=== PATIENT | female | born 1975 | race African-American/Black ===

== ENCOUNTER 2016-04-20 12:46 | Emergency (ER) | payer SELFPAY ==
--- NOTE | 2016-04-20 14:39 | ER Document Report ---
ED General - General Mode of Arrival: Ambulatory Information source: Patient TRAVEL OUTSIDE OF THE [place] IN LAST 30 DAYS: No - HPI Onset: Other Quality of pain: Achy <PIPE PETTY - Last Filed: 04/20/16 14:56> <ROYA GALE - Last Filed: 04/20/16 17:16> - General Chief Complaint: Abdominal Distention Stated Complaint: SORENESS/DIZZY Notes: Patient is a 40-year-old female that presents to the emergency department today with several generalized complaints including feeling jittery, feeling cold all the time, head pressure, foggy vision, lower extremity swelling, and "feeling like her body is falling apart". Patient states she believes her symptoms are related to her hypothyroidism. Patient states she has been off of her Synthroid medication for over a year. Patient states she was on 200 g of Synthroid before losing her health insurance in September of 2014. (PIPE PETTY) - Related Data Allergies/Adverse Reactions: deconsal Allergy (Uncoded 04/20/16 14:13) Past Medical History - General Information source: Patient - Social History Smoking Status: Current Every Day Smoker Cigarette use (# per day): Yes Frequency of alcohol use: Social Drug Abuse: None Occupation: laundry mat Family History: Reviewed & Not Pertinent Pulmonary Medical History: Reports: Hx Asthma Endocrine Medical History: Reports: Hx Hypothyroidism Past Surgical History: Reports: Hx Section, Hx Gynecologic Surgery - tubal, Hx Tubal Ligation - Immunizations Immunizations up to date: Yes Hx Diphtheria, Pertussis, Tetanus Vaccination: Yes <PIPE PETTY - Last Filed: 04/20/16 14:56> Review of Systems - Review of Systems Constitutional: See HPI, Other - "feeling cold" EENT: See HPI, Other - foggy vision, head pressure Cardiovascular: See HPI, Dizziness Respiratory: No symptoms reported Gastrointestinal: No symptoms reported Genitourinary: No symptoms reported Female Genitourinary: No symptoms reported Musculoskeletal: See HPI, Other - generalized body aches Skin: No symptoms reported Hematologic/Lymphatic: No symptoms reported Neurological/Psychological: See HPI, Other - "feeling jittery" -: Yes All other systems reviewed and negative <PIPE PETTY - Last Filed: 04/20/16 14:56> Physical Exam - General General appearance: Appears well, Alert In distress: None - HEENT Head: Normocephalic, Atraumatic Eyes: Normal Extraocular movements intact: Yes Mouth/Lips: Other - poor dentition throughout Mucous membranes: Moist - Respiratory Respiratory status: No respiratory distress - Cardiovascular Rhythm: Regular Heart sounds: Normal auscultation Murmur: No - Abdominal Inspection: Normal Distension: No distension - Extremities General upper extremity: Normal inspection, Nontender, Normal ROM. No: Edema General lower extremity: Edema - trace edema bilaterally - Neurological Neuro grossly intact: Yes Cognition: Normal Orientation: AAOx4 Juan José Coma Scale Eye Opening: Spontaneous Juan José Coma Scale Verbal: Oriented Terril Coma Scale Motor: Obeys Commands Juan José Coma Scale Total: 15 Speech: Normal - Psychological Associated symptoms: Normal affect, Normal mood - Skin Skin Temperature: Warm Skin Moisture: Dry Skin Color: Normal <PIPE PETTY - Last Filed: 04/20/16 14:56> Course - Laboratory Result Diagrams: 04/20/16 15:45 04/20/16 15:45 <ROYA GALE - Last Filed: 04/20/16 17:16> - Vital Signs Vital signs: Temp Pulse Resp BP Pulse Ox 98.5 F 72 18 112/61 100 04/20/16 13:30 04/20/16 13:30 04/20/16 13:30 04/20/16 13:30 04/20/16 13:30 (PIPE PETTY) (ROYA GALE) - Laboratory Laboratory results interpreted by me: 04/20/16 04/20/16 04/20/16 15:45 15:45 15:45 Hgb 11.8 L Hct 35.8 L RDW 15.7 H Potassium 3.4 L TSH 38.60 H Free T4 0.42 L Free T3 pg/mL 2.76 L (ROYA GALE) Discharge <PIPE PETTY - Last Filed: 04/20/16 14:56> <ROYA GALE - Last Filed: 04/20/16 17:16> - Discharge Clinical Impression: Hypothyroidism Qualifiers: Hypothyroidism type: unspecified Qualified Code(s): E03.9 - Hypothyroidism, unspecified Condition: Stable Disposition: HOME, SELF-CARE Additional Instructions: Hypothyroidism: The thyroid gland is found in the front of the neck. It produces thyroid hormone. Thyroid hormone regulates the metabolism. Hypothyroidism means the gland is not turning out enough thyroid hormone. Too much thyroid hormone "turns up the thermostat" too high, causing weight loss, nervousness, rapid heartbeat, and weakness. Too little thyroid hormone causes fatigue, depression, weight gain, and hair thinning. Hypothyroidism is treated with thyroid replacement pills. Testing can show if there are other hormone problems, and can determine whether the pituitary gland or thyroid gland is at fault. Contact the doctor or return if you change for the worse -- for example, palpitations, severe nervousness, chest pain, shortness of breath, worsening weakness or lightheadedness. ALL OF YOUR SYMPTOMS MAY BE DUE TO HYPOTHYROIDISM. SOME OF THE SYMPTOMS MAY ALSO BE DUE TO A VIRAL ILLNESS. TAKE THE MEDICATION PRESCRIBED. GET PLENTY OF REST. FOLLOW UP WITH A LOCAL MEDICAL DOCTOR IN ONE WEEK FOR RECHECK AND TO MANAGE YOUR HYPOTHYROIDISM. RETURN TO THE EMERGENCY ROOM IF ANY NEW OR WORSENING SYMPTOMS. Prescriptions: Levothyroxine Sodium [Synthroid 50 Mcg Tablet] 50 mcg PO DAILY #30 tablet Scribe Attestation: 04/20/16 17:16 I personally performed the services described in the documentation, reviewed and edited the documentation which was dictated to the scribe in my presence, and it accurately records my words and actions. (ROYA GALE) Scribe Documentation - Scribe Written by Shekhar:: Shekhar Min, [id number] 04/20/2016 acting as scribe for :: Alexys <PIPE PETTY - Last Filed: 04/20/16 14:56>
[2016-04-20 15:58] LABS: ABSOLUTE BASOPHILS # (AUTO) 0.1 10^3/uL (0.0-0.2); ABSOLUTE EOSINOPHILS # (AUTO) 0.2 10^3/uL (0.0-0.6); ABSOLUTE MONOCYTES (AUTO) 0.4 10^3/uL (0.1-1.4); BASOPHILS % (AUTO) 0.8 % (0-2); EOSINOPHILS % (AUTO) 2.8 % (0-6); HEMATOCRIT 35.8 % (36.0-47.0); HEMOGLOBIN 11.8 g/dL (12.0-15.5); HGB HCT DIFFERENCE -0.4; LYMPHOCYTES % (AUTO) 29.7 % (13-45); MEAN CORPUSCULAR HEMOGLOBIN 28.7 pg (27.0-33.4); MEAN CORPUSCULAR HGB CONC 33.1 g/dL (32.0-36.0); MEAN CORPUSCULAR VOLUME 87 fl (80-97); MONOCYTES % (AUTO) 6.6 % (3-13); RED BLOOD COUNT 4.13 10^6/uL (3.72-5.28); RED CELL DISTRIBUTION WIDTH 15.7 % (11.5-14.0); SEGMENTED NEUTROPHILS % (AUTO) 60.1 % (42-78); WHITE BLOOD COUNT 6.6 10^3/uL (4.0-10.5)
[2016-04-20 16:09] LABS: ALANINE AMINOTRANSFERASE 25 U/L (9-52); ALBUMIN 4.2 g/dL (3.5-5.0); ALKALINE PHOSPHATASE 42 U/L (38-126); ANION GAP 12 (5-19); ASPARTATE AMINO TRANSFERASE 20 U/L (14-36); BILIRUBIN,TOTAL 0.5 mg/dL (0.2-1.3); BLOOD UREA NITROGEN 10 mg/dL (7-20); CARBON DIOXIDE 26 mmol/L (22-30); CHLORIDE 101 mmol/L (98-107); CREATININE RESULT 0.67 mg/dL (0.52-1.25); GLUCOSE 85 mg/dL (75-110); POTASSIUM 3.4 mmol/L (3.6-5.0); SODIUM 139.2 mmol/L (137-145)
[2016-04-20 16:26] LABS: FREE T3 2.76 pg/mL (2.77-5.27)
[2016-04-20 16:40] LABS: THYROID STIMULATING HORMONE 38.6 uIU/mL (0.47-4.68)
[2016-04-20 17:23] VITALS: BP 102/59
== END 2016-04-20 17:30 | disposition home or self-care (01) ==
LOC: ER 12:46
DX: E03.9 Hypothyroidism, unspecified (principal); H53.8 Other visual disturbances; R42 Dizziness and giddiness; R52 Pain, unspecified; R29.818 Other symptoms and signs involving the nervous system; R60.0 Localized edema; F17.210 Nicotine dependence, cigarettes, uncomplicated; J45.909 Unspecified asthma, uncomplicated
CPT/HCPCS: 36415; 80053; 84439; 84443; 84481; 85025; 99284

== ENCOUNTER 2016-05-10 07:10 | Emergency (ER) | payer SELFPAY ==
[2016-05-10 07:37] VITALS: BP 103/73
[2016-05-10] MEDS ORDERED: ASPIRIN 81 MG TABLET, CHEWABLE PO ONE (08:15)
--- NOTE | 2016-05-10 08:33 | EKG REPORT ---
SEVERITY:- NORMAL ECG - SINUS RHYTHM : Confirmed by: Kyaw Rodrigues 10-May-2016 08:32:06
== END 2016-05-10 08:35 | disposition left against medical advice (07) ==
LOC: ER 07:10
DX: Z53.21 Procedure and treatment not carried out due to patient leaving prior to being seen by health care provider (principal)
CPT/HCPCS: 93005; 93010

== ENCOUNTER 2016-05-10 10:58 | Emergency (ER) | payer SELFPAY ==
[2016-05-10] MEDS ORDERED: ASPIRIN 81 MG TABLET, CHEWABLE PO ONE (11:03)
--- NOTE | 2016-05-10 11:20 | ER Document Report ---
ED Medical Screen (RME) - General Stated Complaint: CHEST PAIN Mode of Arrival: Ambulatory Information source: Patient Notes: 40 y/o F presents to ED c/o left upper chest pain since last night. Reports pain is worse with deep breathing. Denies fever or sob. I have greeted and performed a rapid initial assessment of this patient. A comprehensive ED assessment and evaluation of the patient, analysis of test results and completion of the medical decision making process will be conducted by additional ED providers. TRAVEL OUTSIDE OF THE [place] IN LAST 30 DAYS: No - Related Data Allergies/Adverse Reactions: deconsal Allergy (Uncoded 05/10/16 07:36) Past Medical History - Social History Chew tobacco use (# tins/day): No Frequency of alcohol use: None Drug Abuse: None Pulmonary Medical History: Reports: Hx Asthma Endocrine Medical History: Reports: Hx Hypothyroidism Renal/ Medical History: Denies: Hx Peritoneal Dialysis Past Surgical History: Reports: Hx Section, Hx Gynecologic Surgery - tubal, Hx Tubal Ligation - Immunizations Immunizations up to date: Yes Hx Diphtheria, Pertussis, Tetanus Vaccination: Yes Physical Exam - Vital signs Vitals: Temp Pulse Resp BP Pulse Ox 97.8 F 81 20 103/66 98 05/10/16 11:15 05/10/16 11:15 05/10/16 11:15 05/10/16 11:15 05/10/16 11:15 - General General appearance: Appears well, Alert In distress: None - Respiratory Respiratory status: No respiratory distress Breath sounds: Normal Course - Vital Signs Vital signs: Temp Pulse Resp BP Pulse Ox 97.8 F 81 20 103/66 98 05/10/16 11:15 05/10/16 11:15 05/10/16 11:15 05/10/16 11:15 05/10/16 11:15
[2016-05-10 12:35] LABS: ABSOLUTE EOSINOPHILS # (AUTO) 0.2 10^3/uL (0.0-0.6); ABSOLUTE LYMPHOCYTES (AUTO) 1.8 10^3/uL (0.5-4.7); ABSOLUTE MONOCYTES (AUTO) 0.4 10^3/uL (0.1-1.4); ABSOLUTE NEUT (AUTO) 3.6 10^3/uL (1.7-8.2); BASOPHILS % (AUTO) 0.5 % (0-2); EOSINOPHILS % (AUTO) 2.6 % (0-6); HEMATOCRIT 38.4 % (36.0-47.0); HEMOGLOBIN 12.6 g/dL (12.0-15.5); HGB HCT DIFFERENCE -0.6; LYMPHOCYTES % (AUTO) 29.6 % (13-45); MEAN CORPUSCULAR HEMOGLOBIN 28.7 pg (27.0-33.4); MEAN CORPUSCULAR HGB CONC 32.7 g/dL (32.0-36.0); MEAN CORPUSCULAR VOLUME 88 fl (80-97); MONOCYTES % (AUTO) 6.8 % (3-13); RED BLOOD COUNT 4.39 10^6/uL (3.72-5.28); RED CELL DISTRIBUTION WIDTH 15.5 % (11.5-14.0); SEGMENTED NEUTROPHILS % (AUTO) 60.5 % (42-78)
[2016-05-10 12:50] LABS: APPEARANCE,URINE CLEAR; BILIRUBIN,URINE NEGATIVE (NEGATIVE); GLUCOSE, URINE NEGATIVE (NEGATIVE); KETONES,URINE 20 mg/dL (NEGATIVE); LEUKOCYTE ESTERASE,URINE TRACE (NEGATIVE); NITRITE,URINE NEGATIVE (NEGATIVE); PROTEIN,URINE NEGATIVE (NEGATIVE); URINE SPECIFIC GRAVITY 1.024; UROBILINOGEN,URINE NEGATIVE mg/dL (<2.0)
[2016-05-10 12:52] LABS: ALANINE AMINOTRANSFERASE 24 U/L (9-52); ALKALINE PHOSPHATASE 50 U/L (38-126); ANION GAP 11 (5-19); ASPARTATE AMINO TRANSFERASE 21 U/L (14-36); BILIRUBIN,TOTAL 0.5 mg/dL (0.2-1.3); BLOOD UREA NITROGEN 12 mg/dL (7-20); CALCIUM 9.2 mg/dL (8.4-10.2); CARBON DIOXIDE 24 mmol/L (22-30); CHLORIDE 105 mmol/L (98-107); CREATINE KINASE 89 U/L (30-135); CREATININE RESULT 0.66 mg/dL (0.52-1.25); GLUCOSE 83 mg/dL (75-110); POTASSIUM 3.7 mmol/L (3.6-5.0); SODIUM 140.4 mmol/L (137-145); TOTAL PROTEIN 7.4 g/dL (6.3-8.2)
[2016-05-10 12:58] LABS: CREATINE KINASE MB 0.48 ng/mL (<4.55); TROPONIN I < 0.012 ng/mL
--- NOTE | 2016-05-10 20:10 | EKG REPORT ---
SEVERITY:- NORMAL ECG - SINUS RHYTHM : Confirmed by: Kyaw Rodrigues 10-May-2016 20:09:57
--- NOTE | 2016-05-10 22:24 | ER Document Report ---
ED General - General Chief Complaint: Chest Pain Stated Complaint: CHEST PAIN Mode of Arrival: Ambulatory Notes: Patient is a 40-year-old female without past mental history who presents with chest pain " for months". Describes it as a intermittent, diffuse chest wall pain. Unchanged since onset. Pain is described as moderately uncomfortable. States that is worsened when she stressed out. Nothing improves the pain and it does resolve spontaneously. Denies any history of coronary artery disease, pulmonary embolus, connective tissue disease, does not use any estrogen. She has not seen a primary care physician regarding today's concerns. TRAVEL OUTSIDE OF THE [place] IN LAST 30 DAYS: No - Related Data Allergies/Adverse Reactions: deconsal Allergy (Uncoded 05/10/16 07:36) Past Medical History - General Information source: Patient - Social History Smoking Status: Current Every Day Smoker Chew tobacco use (# tins/day): No Frequency of alcohol use: None Drug Abuse: None Lives with: Spouse/Significant other Family History: Reviewed & Not Pertinent Patient has suicidal ideation: No Patient has homicidal ideation: No Pulmonary Medical History: Reports: Hx Asthma Endocrine Medical History: Reports: Hx Hypothyroidism Renal/ Medical History: Denies: Hx Peritoneal Dialysis Past Surgical History: Reports: Hx Section, Hx Gynecologic Surgery - tubal, Hx Tubal Ligation - Immunizations Immunizations up to date: Yes Hx Diphtheria, Pertussis, Tetanus Vaccination: Yes Review of Systems - Review of Systems Notes: Constitutional: Negative for fever. HENT: Negative for sore throat. Eyes: Negative for visual changes. Cardiovascular: Positive for chest pain. Respiratory: Negative for shortness of breath. Gastrointestinal: Negative for abdominal pain, vomiting or diarrhea. Genitourinary: Negative for dysuria. Musculoskeletal: Negative for back pain. Skin: Negative for rash. Neurological: Negative for headaches, weakness or numbness. 10 point ROS negative except as marked above and in HPI. Physical Exam - Vital signs Vitals: Temp Pulse Resp BP Pulse Ox 97.8 F 81 20 103/66 98 05/10/16 11:15 05/10/16 11:15 05/10/16 11:15 05/10/16 11:15 05/10/16 11:15 Interpretation: Normal Notes: PHYSICAL EXAMINATION: GENERAL: Well-appearing, well-nourished and in no acute distress. HEAD: Atraumatic, normocephalic. EYES: Pupils equal round and reactive to light, extraocular movements intact, sclera anicteric, conjunctiva are normal. ENT: nares patent, oropharynx clear without exudates. Moist mucous membranes. NECK: Normal range of motion, supple without lymphadenopathy LUNGS: Breath sounds clear to auscultation bilaterally and equal. No wheezes rales or rhonchi. HEART: Regular rate and rhythm without murmurs ABDOMEN: Soft, nontender, normoactive bowel sounds. No guarding, no rebound. No masses appreciated. EXTREMITIES: Normal range of motion, no pitting or edema. No cyanosis. NEUROLOGICAL: No focal neurological deficits. Moves all extremities spontaneously and on command. PSYCH: Normal mood, normal affect. SKIN: Warm, Dry, normal turgor, no rashes or lesions noted. Course - Re-evaluation Re-evalutation: 05/10/16 22:22 Presentation of chest pain in an otherwise well appearing patient. Low clinical suspicion for ACS given clinical history, exam, EKG without ST elevations or depressions, and negative initial troponin. HEART score less than or equal to 3. PE also seems unlikely given clinical history, absence of tachycardia or dyspnea. Patient is PERC criteria negative. CXR without evidence of pneumothorax or pneumonia. No widened mediastinum. Aortic dissection also seems unlikely given history, symmetric pulses, CXR, and vitals. HEART Score: History:0 EC Age:0 Risk Factors:1 Troponin:0 Total: 1 Chest pain in a patient without evidence of cardiac or other serious etiology on workup today. I discussed with patient that, based on their age, risk factors and emergency department testing today, the likelihood that their symptoms are related to a heart attack is very low (estimated risk of heart attack or over the next 30 days of less than 1%). The patient demonstrates decision making capacity and has verbalized an understanding of these risks to me. Based on this, the patient has chosen to follow-up as an outpatient. Usual chest pain return precautions reviewed. The patient states understanding and agreement with this plan. - Vital Signs Vital signs: Temp Pulse Resp BP Pulse Ox 98.4 F 76 18 113/59 L 100 05/10/16 20:33 05/10/16 20:33 05/10/16 20:33 05/10/16 20:33 05/10/16 20:33 - Laboratory Result Diagrams: 05/10/16 12:08 05/10/16 12:08 Laboratory results interpreted by me: 05/10/16 05/10/16 12:00 12:08 RDW 15.5 H Urine Ketones 20 H Ur Leukocyte Esterase TRACE H - Diagnostic Test Radiology reviewed: Image reviewed, Reports reviewed Radiology results interpreted by me: 05/10/16 22:23 Chest x-ray: No acute infiltrate or pneumothorax - EKG Interpretation by Me Additional EKG results interpreted by me: 05/10/16 22:23 Normal sinus rhythm. Rate 67.Elevations or depressions. QTC is 414. Discharge - Discharge Clinical Impression: Chest pain Qualifiers: Chest pain type: unspecified Qualified Code(s): R07.9 - Chest pain, unspecified Condition: Good Disposition: HOME, SELF-CARE Additional Instructions: You were seen today for chest pain. The exact cause of your pain is unclear. However, based on your cardiac enzyme testing, chest x-ray, and EKG it does not appear that it is from an immediately life-threatening cause at this time. Although your testing here is normal is critical that you follow-up with your primary care physician for continued evaluation of this chest pain and possible stress testing. I recommended you see your physician within the next 24-48 hours to be evaluated for consideration of a stress test. Please return to emergency department immediately if you have worsening of your chest pain, shortness of breath, vomiting, become unable to exert yourself due to pain or difficulty breathing, you pass out, or have any pain that radiates into your arms, jaw, or back. Please also return if you have any additional symptoms that are concerning to you. Forms: Return to Work
[2016-05-11 08:58] VITALS: BP 107/58
== END 2016-05-10 22:40 | disposition home or self-care (01) ==
LOC: ER 10:58
DX: R07.9 Chest pain, unspecified (principal); F17.200 Nicotine dependence, unspecified, uncomplicated; E03.9 Hypothyroidism, unspecified; J45.909 Unspecified asthma, uncomplicated; Z98.51 Tubal ligation status
CPT/HCPCS: 36415; 71010; 80053; 81001; 81025; 82550; 82553; 84484; 85025; 93005; 93010; 99285

== ENCOUNTER 2016-10-06 12:36 | Emergency (ER) | payer SELFPAY ==
[2016-10-06 12:58] VITALS: BP 106/65
--- NOTE | 2016-10-08 06:04 | EKG REPORT ---
SEVERITY:- ABNORMAL ECG - SINUS RHYTHM NONSPECIFIC INTRAVENTRICULAR CONDUCTION DELAY : Confirmed by: Elise Sheets MD 08-Oct-2016 06:03:45
== END 2016-10-06 13:29 | disposition left against medical advice (07) ==
LOC: ER 12:36
DX: Z53.21 Procedure and treatment not carried out due to patient leaving prior to being seen by health care provider (principal)
CPT/HCPCS: 93005; 93010

== ENCOUNTER 2017-01-28 15:13 | Emergency (ER) | payer SELFPAY ==
--- NOTE | 2017-01-28 16:26 | ER Document Report ---
HPI - HPI Patient complains to provider of: cough, congestion Onset: Other - 1 week Onset/Duration: Gradual Pain Level: 4 Context: 41-year-old smoker female complaining of cough and congestion for a week. No shortness of breath or chest pain. No nausea vomiting or diarrhea. No abdominal pain. No fever. Needs a work note. Associated Symptoms: None Exacerbated by: Denies Relieved by: Denies Similar symptoms previously: No Recently seen / treated by doctor: No - ROS ROS below otherwise negative: Yes Systems Reviewed and Negative: Yes All other systems reviewed and negative - CARDIOVASCULAR Cardiovascular: DENIES: Chest pain - REPRODUCTIVE Reproductive: DENIES: : - DERM Skin Color: Normal Past Medical History - General Information source: Patient - Social History Smoking Status: Current Every Day Smoker Chew tobacco use (# tins/day): No Frequency of alcohol use: Occasional Drug Abuse: None Lives with: Family Family History: Reviewed & Not Pertinent Patient has suicidal ideation: No Patient has homicidal ideation: No Pulmonary Medical History: Reports: Hx Asthma Endocrine Medical History: Reports: Hx Hypothyroidism - no meds for 8 months Renal/ Medical History: Denies: Hx Peritoneal Dialysis Past Surgical History: Reports: Hx Section, Hx Gynecologic Surgery - tubal, Hx Orthopedic Surgery - right wrist, Hx Tubal Ligation - Immunizations Immunizations up to date: Yes Hx Diphtheria, Pertussis, Tetanus Vaccination: Yes Vertical Provider Document - CONSTITUTIONAL Agree With Documented VS: Yes Exam Limitations: No Limitations General Appearance: No Apparent Distress - INFECTION CONTROL TRAVEL OUTSIDE OF THE [place] IN LAST 30 DAYS: No - HEENT HEENT: Normocephalic. negative: Conjuctival Injection, Pharyngeal Erythema, Tympanic Membrane Red - NECK Neck: Supple. negative: Lymphadenopathy-Left, Lymphadenopathy-Right - RESPIRATORY Respiratory: Breath Sounds Normal, No Respiratory Distress O2 Sat by Pulse Oximetry: 98 Notes: course cough - CARDIOVASCULAR Cardiovascular: Regular Rate, Regular Rhythm - MUSCULOSKELETAL/EXTREMETIES Musculoskeletal/Extremeties: JOI RAMSAY - NEURO Level of Consciousness: Awake, Alert - DERM Integumentary: Warm, Dry, No Rash Course - Re-evaluation Re-evalutation: 01/28/17 18:01 Chest x-ray is negative, lungs are clear and she states the albuterol helped get the mucus out. - Vital Signs Vital signs: Temp Pulse Resp BP Pulse Ox 98.3 F 94 24 H 123/79 98 01/28/17 15:21 01/28/17 15:21 01/28/17 15:21 01/28/17 15:21 01/28/17 15:21 Discharge - Discharge Clinical Impression: Bronchitis Condition: Good Disposition: HOME, SELF-CARE Instructions: [facility], Bronchitis ([facility]), Inhaled Bronchodilators ([facility] THE [facility]) Additional Instructions: to er if worse plenty of fluids use the inhaler every 3 hours for cough Please complete the patient satisfaction survey if you get one, and return it.. If you do not receive a survey, then you can go to the [facility] website, [email or web address] and place your comments about your very good care. Thank you very much. It was a pleasure being your medical provider today. Prescriptions: Albuterol Sulfate [Proair HFA Inhalation Aerosol 8.5 gm MDI] 2 puff IH Q3HP PRN #1 [email or web address] PRN Reason: Forms: Return to Work
[2017-01-28] MEDS ORDERED: ALBUTEROL SULFATE 0.083% NEB 2.5 MG/3 ML AMPUL NEB ONE (16:50)
--- NOTE | 2017-01-28 17:13 | RADIOLOGY REPORT (SQ) ---
EXAM DESCRIPTION: CHEST PA/LAT COMPLETED DATE/TIME: 01/28/2017 5:05 pm REASON FOR STUDY: cough x 1 week COMPARISON: 05/10/2016 EXAM PARAMETERS: NUMBER OF VIEWS: two views TECHNIQUE: Digital Frontal and Lateral radiographic views of the chest acquired. RADIATION DOSE: NA LIMITATIONS: none FINDINGS: LUNGS AND PLEURA: No opacities, masses or pneumothorax. No pleural effusion. MEDIASTINUM AND HILAR STRUCTURES: No masses or contour abnormalities. HEART AND VASCULAR STRUCTURES: Heart normal size. No evidence for failure. BONES: No acute findings. HARDWARE: None in the chest. OTHER: No other significant finding. IMPRESSION: NO SIGNIFICANT RADIOGRAPHIC FINDING IN THE CHEST. TECHNICAL DOCUMENTATION: JOB ID: [id number] [employer]- All Rights Reserved
[2017-01-28] MEDS ORDERED: ALBUTEROL SULFATE HFA (90 MCG/PUFF) 8 GM MDI (1 MDI/ER DISP) IH PRN (18:01)
[2017-01-28 18:38] VITALS: BP 121/70
== END 2017-01-28 18:26 | disposition home or self-care (01) ==
LOC: ER 15:13
DX: J40 Bronchitis, not specified as acute or chronic (principal); F17.200 Nicotine dependence, unspecified, uncomplicated
CPT/HCPCS: 94640; 99283; 71020; J3490

== ENCOUNTER 2017-03-03 11:21 | Emergency (ER) | payer SELFPAY ==
[2017-03-03] MEDS ORDERED: ONDANSETRON HCL INJ/PF 4 MG/2 ML SDV IV ONE (11:42)
[2017-03-03] MEDS ORDERED: NORMAL SALINE 1000 ML 1,000 ML IV ONE (11:42)
[2017-03-03] MEDS ORDERED: MORPHINE SULFATE 10 MG/ML INJ IV ONE (11:42)
--- NOTE | 2017-03-03 11:43 | ER Document Report ---
ED Medical Screen (RME) - General Chief Complaint: Dizziness Stated Complaint: RIGHT SIDE PAIN Time Seen by Provider: 03/03/17 11:41 Notes: Patient has complaints of right arm pain right chest pain, being lightheaded and dizzy, headaches, been out of her Synthroid for over 6 months. TRAVEL OUTSIDE OF THE [place] IN LAST 30 DAYS: No - Related Data Allergies/Adverse Reactions: deconsal Allergy (Uncoded 03/03/17 11:23) Past Medical History Pulmonary Medical History: Reports: Hx Asthma Endocrine Medical History: Reports: Hx Hypothyroidism - no meds for 8 months Renal/ Medical History: Denies: Hx Peritoneal Dialysis Past Surgical History: Reports: Hx Section, Hx Gynecologic Surgery - tubal, Hx Orthopedic Surgery - right wrist, Hx Tubal Ligation - Immunizations Immunizations up to date: Yes Hx Diphtheria, Pertussis, Tetanus Vaccination: Yes Physical Exam - Vital signs Vitals: Temp Pulse Resp BP Pulse Ox 98.0 F 72 16 120/77 100 03/03/17 11:29 03/03/17 11:29 03/03/17 11:29 03/03/17 11:29 03/03/17 11:29 Course - Vital Signs Vital signs: Temp Pulse Resp BP Pulse Ox 98.9 F 72 16 120/77 100 03/03/17 11:29 03/03/17 11:29 03/03/17 11:29 03/03/17 11:29 03/03/17 11:29
[2017-03-03 12:27] LABS: ABSOLUTE EOSINOPHILS # (AUTO) 0.2 10^3/uL (0.0-0.6); ABSOLUTE LYMPHOCYTES (AUTO) 2.2 10^3/uL (0.5-4.7); ABSOLUTE MONOCYTES (AUTO) 0.5 10^3/uL (0.1-1.4); ABSOLUTE NEUT (AUTO) 4.3 10^3/uL (1.7-8.2); BASOPHILS % (AUTO) 0.5 % (0-2); EOSINOPHILS % (AUTO) 2.3 % (0-6); HEMATOCRIT 37.6 % (36.0-47.0); HEMOGLOBIN 12.7 g/dL (12.0-15.5); HGB HCT DIFFERENCE 0.5; LYMPHOCYTES % (AUTO) 30.6 % (13-45); MEAN CORPUSCULAR HEMOGLOBIN 29.5 pg (27.0-33.4); MEAN CORPUSCULAR HGB CONC 33.8 g/dL (32.0-36.0); MEAN CORPUSCULAR VOLUME 87 fl (80-97); MONOCYTES % (AUTO) 7.1 % (3-13); RED CELL DISTRIBUTION WIDTH 15.1 % (11.5-14.0); SEGMENTED NEUTROPHILS % (AUTO) 59.5 % (42-78); WHITE BLOOD COUNT 7.2 10^3/uL (4.0-10.5)
[2017-03-03] MEDS ORDERED: DIPHENHYDRAMINE HCL 50 MG/ML VIAL IV ONE (12:32)
[2017-03-03 12:44] LABS: ALANINE AMINOTRANSFERASE 34 U/L (9-52); ALBUMIN 4.4 g/dL (3.5-5.0); ALKALINE PHOSPHATASE 56 U/L (38-126); ANION GAP 11 (5-19); ASPARTATE AMINO TRANSFERASE 24 U/L (14-36); BILIRUBIN,DIRECT 0.2 mg/dL (0.0-0.4); BILIRUBIN,TOTAL 0.3 mg/dL (0.2-1.3); BLOOD UREA NITROGEN 11 mg/dL (7-20); CALCIUM 9.3 mg/dL (8.4-10.2); CARBON DIOXIDE 29 mmol/L (22-30); CHLORIDE 102 mmol/L (98-107); CREATININE RESULT 0.69 mg/dL (0.52-1.25); GLUCOSE 93 mg/dL (75-110); POTASSIUM 3.7 mmol/L (3.6-5.0); SODIUM 142.1 mmol/L (137-145); TOTAL PROTEIN 7.7 g/dL (6.3-8.2)
[2017-03-03 12:58] LABS: APPEARANCE,URINE SLIGHTLY-CLOUDY; BILIRUBIN,URINE NEGATIVE (NEGATIVE); GLUCOSE, URINE NEGATIVE (NEGATIVE); KETONES,URINE TRACE mg/dL (NEGATIVE); LEUKOCYTE ESTERASE,URINE TRACE (NEGATIVE); NITRITE,URINE NEGATIVE (NEGATIVE); PROTEIN,URINE NEGATIVE (NEGATIVE); URINE SPECIFIC GRAVITY 1.028
--- NOTE | 2017-03-03 13:08 | EKG REPORT ---
SEVERITY:- NORMAL ECG - SINUS RHYTHM : Confirmed by: Kyaw Rodrigues 03-Mar-2017 13:07:31
--- NOTE | 2017-03-03 13:34 | ER Document Report ---
ED Dizziness/Weakness - General Chief Complaint: Dizziness Stated Complaint: RIGHT SIDE PAIN Time Seen by Provider: 03/03/17 11:41 Mode of Arrival: Ambulatory Information source: Patient Notes: Patient is a 41-year-old female who presents to the ER today for total body pain. Patient states that she has been off her Synthroid for 6 months because she does not have a primary care provider to follow-up with to get refills. Patient complains of right sided arm pain radiating into her chest, back pain, abdominal pain, bilateral leg pain. Patient states "I just hurt all over." She admits to lightheadedness but no syncopal episodes. She denies any fever or chills, cough, upper respiratory symptoms. TRAVEL OUTSIDE OF THE [place] IN LAST 30 DAYS: No - Related Data Allergies/Adverse Reactions: deconsal Allergy (Uncoded 03/03/17 11:23) Past Medical History - General Information source: Patient - Social History Smoking Status: Current Every Day Smoker Chew tobacco use (# tins/day): No Frequency of alcohol use: None Drug Abuse: None Family History: Reviewed & Not Pertinent Patient has suicidal ideation: No Patient has homicidal ideation: No Pulmonary Medical History: Reports: Hx Asthma Endocrine Medical History: Reports: Hx Hypothyroidism - no meds for 8 months Renal/ Medical History: Denies: Hx Peritoneal Dialysis Past Surgical History: Reports: Hx Section, Hx Gynecologic Surgery - tubal, Hx Orthopedic Surgery - right wrist, Hx Tubal Ligation - Immunizations Immunizations up to date: Yes Hx Diphtheria, Pertussis, Tetanus Vaccination: Yes Review of Systems - Review of Systems Constitutional: See HPI EENT: No symptoms reported Cardiovascular: No symptoms reported Respiratory: No symptoms reported Gastrointestinal: No symptoms reported Genitourinary: No symptoms reported Female Genitourinary: No symptoms reported Musculoskeletal: No symptoms reported Skin: No symptoms reported Hematologic/Lymphatic: No symptoms reported Neurological/Psychological: No symptoms reported Physical Exam - Vital signs Vitals: Temp Pulse Resp BP Pulse Ox 98.0 F 72 16 120/77 100 03/03/17 11:29 03/03/17 11:29 03/03/17 11:29 03/03/17 11:29 03/03/17 11:29 - Notes Notes: PHYSICAL EXAMINATION: GENERAL: Well-appearing, multitasking in room, and in no acute distress. HEAD: Atraumatic, normocephalic. EYES: Pupils equal round and reactive to light, extraocular movements intact, sclera anicteric, conjunctiva are normal. ENT: ear canals without erythema or foreign body, TMs pearly krishnan with good bony landmarks, nares patent, oropharynx clear without exudates. Moist mucous membranes. NECK: Normal range of motion, supple without lymphadenopathy LUNGS: CTAB and equal. No wheezes rales or rhonchi. HEART: Regular rate and rhythm without murmurs ABDOMEN: Soft, no tenderness. No guarding, no rebound BACK: no vertebral tenderness, normal ROM GI/: no CVA tenderness EXTREMITIES: Normal range of motion, no pitting edema. No cyanosis. NEUROLOGICAL: Cranial nerves grossly intact. Normal sensory/motor exams. PSYCH: Normal mood, normal affect. SKIN: Warm, Dry, normal turgor, no rashes or lesions noted Course - Re-evaluation Re-evalutation: 03/03/17 17:37 Cardiac enzymes negative today, laboratory workup is unremarkable today except for TSH which is elevated. I will place patient back on 50 mcg of Synthroid. She states that she was on a higher dose than that but has been placed on that before whenever she "was out for a long time." I gave her the [facility] information to follow-up with. 03/03/17 17:37 - Vital Signs Vital signs: Temp Pulse Resp BP Pulse Ox 98.8 F 79 16 111/75 100 03/03/17 13:53 03/03/17 13:53 03/03/17 13:53 03/03/17 13:53 03/03/17 13:53 - Laboratory Result Diagrams: 03/03/17 12:15 03/03/17 12:15 Laboratory results interpreted by me: 03/03/17 03/03/17 03/03/17 12:00 12:15 12:15 RDW 15.1 H TSH 26.20 H Urine Ketones TRACE H Urine Urobilinogen 2.0 H Ur Leukocyte Esterase TRACE H Discharge - Discharge Clinical Impression: Total body pain Hypothyroidism Qualifiers: Hypothyroidism type: unspecified Qualified Code(s): E03.9 - Hypothyroidism, unspecified Condition: Stable Disposition: HOME, SELF-CARE Additional Instructions: Return immediately for any new or worsening symptoms. Follow up with primary care provider, call tomorrow to make followup appointment. Prescriptions: Levothyroxine Sodium [Synthroid 50 Mcg Tablet] 50 mcg PO DAILY #30 tablet Referrals: [facility] [Provider Group] - Follow up as needed
[2017-03-03 13:58] VITALS: BP 111/75
== END 2017-03-03 13:58 | disposition home or self-care (01) ==
LOC: ER 11:21
DX: M79.601 Pain in right arm (principal); R07.9 Chest pain, unspecified; M54.9 Dorsalgia, unspecified; M79.604 Pain in right leg; M79.605 Pain in left leg; E03.9 Hypothyroidism, unspecified; T38.1X6A Underdosing of thyroid hormones and substitutes, initial encounter; Z91.128 Patient's intentional underdosing of medication regimen for other reason; Z91.14 Patient's other noncompliance with medication regimen; J45.909 Unspecified asthma, uncomplicated; F17.200 Nicotine dependence, unspecified, uncomplicated; Z88.8 Allergy status to other drugs, medicaments and biological substances
CPT/HCPCS: 93005; 99284; 96361; 96374; 96375; 36415; 84443; 85025; 81025; 80053; 81001; 84484; 93010; J1200; J2270; J2405; J7030

== ENCOUNTER 2017-04-16 00:04 | Emergency (ER) | payer SELFPAY ==
[2017-04-16] MEDS ORDERED: TETRACAINE HCL 0.5% OPH SOLN 2 ML OS ONE (01:53)
--- NOTE | 2017-04-16 01:54 | ER Document Report ---
ED Medical Screen (RME) - General Chief Complaint: Eye Problem Stated Complaint: LEFT EYE SWELLING Time Seen by Provider: 04/16/17 01:52 Mode of Arrival: Ambulatory Information source: Patient Notes: Patient presents complaining of left swelling and irritation. Patient complains of light sensitivity and tearing. Patient does wear contact lenses and does sleep in them. Patient does not have her contact lenses in at this time. I have greeted and performed a rapid initial assessment of this patient. A comprehensive ED assessment and evaluation of the patient, analysis of test results and completion of the medical decision making process will be conducted by additional ED providers. TRAVEL OUTSIDE OF THE [place] IN LAST 30 DAYS: No - Related Data Allergies/Adverse Reactions: deconsal Allergy (Uncoded 03/03/17 11:23) Past Medical History Pulmonary Medical History: Reports: Hx Asthma Endocrine Medical History: Reports: Hx Hypothyroidism - no meds for 8 months Renal/ Medical History: Denies: Hx Peritoneal Dialysis Past Surgical History: Reports: Hx Section, Hx Gynecologic Surgery - tubal, Hx Orthopedic Surgery - right wrist, Hx Tubal Ligation. Denies: Hx Hysterectomy - Immunizations Immunizations up to date: Yes Hx Diphtheria, Pertussis, Tetanus Vaccination: Yes Physical Exam - Vital signs Vitals: Temp Pulse BP Pulse Ox 97.9 F 83 127/71 H 99 04/16/17 00:57 04/16/17 00:57 04/16/17 00:57 04/16/17 00:57 - HEENT Eyes: Tears Conjunctiva: Other - Mild chemosis to medial aspect of left eye Course - Vital Signs Vital signs: Temp Pulse Resp BP Pulse Ox 97.9 F 83 127/71 H 99 04/16/17 00:57 04/16/17 00:57 04/16/17 00:57 04/16/17 00:57
--- NOTE | 2017-04-16 03:31 | ER Document Report ---
HPI - HPI Patient complains to provider of: Left eye irritation Onset: This afternoon Onset/Duration: Gradual Quality of pain: Burning Pain Level: 5 Context: Patient presents complaining of left eye irritation with swelling to the eyelid. Patient reports light sensitivity and tearing. Patient does wear contact lenses and she does report that she sleeps in them. Patient reports changing her lenses out about every other day. Patient complains of blurred vision to her left eye. Associated Symptoms: Other - Left eye irritation. denies: Fever Exacerbated by: Denies Relieved by: Denies Similar symptoms previously: No Recently seen / treated by doctor: No - ROS ROS below otherwise negative: Yes Systems Reviewed and Negative: Yes All other systems reviewed and negative - CONSTITUTIONAL Constitutional: DENIES: Fever - EENT EENT: REPORTS: Eye problems - REPRODUCTIVE Reproductive: DENIES: : - DERM Skin Color: Normal Skin Problems: None Past Medical History - General Information source: Patient - Social History Smoking Status: Former Smoker Frequency of alcohol use: None Drug Abuse: None Family History: Reviewed & Not Pertinent Patient has suicidal ideation: No Patient has homicidal ideation: No Pulmonary Medical History: Reports: Hx Asthma Endocrine Medical History: Reports: Hx Hypothyroidism - no meds for 8 months Renal/ Medical History: Denies: Hx Peritoneal Dialysis Past Surgical History: Reports: Hx Section, Hx Gynecologic Surgery - tubal, Hx Orthopedic Surgery - right wrist, Hx Tubal Ligation. Denies: Hx Hysterectomy - Immunizations Immunizations up to date: Yes Hx Diphtheria, Pertussis, Tetanus Vaccination: Yes Vertical Provider Document - CONSTITUTIONAL Agree With Documented VS: Yes Exam Limitations: No Limitations General Appearance: WD/WN, No Apparent Distress - INFECTION CONTROL TRAVEL OUTSIDE OF THE [place] IN LAST 30 DAYS: No - HEENT HEENT: Atraumatic, Normocephalic Notes: Patient with corneal abrasion to the left eye overlying the pupil with fluorescein uptake. Eyelid everted, no foreign body. No corneal ulcer, dendrite, or foreign body. Patient's eye tenderness resolved after application of tetracaine. Tearing to bilateral eyes with mild injection of left eye. - NECK Neck: Normal Inspection - RESPIRATORY Respiratory: Breath Sounds Normal, No Respiratory Distress O2 Sat by Pulse Oximetry: 99 - CARDIOVASCULAR Cardiovascular: Regular Rate, Regular Rhythm - MUSCULOSKELETAL/EXTREMETIES Musculoskeletal/Extremeties: MAEW - NEURO Level of Consciousness: Awake, Alert, Appropriate Motor/Sensory: No Motor Deficit - DERM Integumentary: Warm, Dry Course - Re-evaluation Re-evalutation: 04/16/17 03:41 Patient educated at length importance of not wearing her contact lenses until cleared to do so by her communications engineer. Patient does have glasses at home. Patient encouraged to follow-up with her communications engineer on Tuesday for recheck. Patient advised to return immediately for any new or worsening symptoms. - Vital Signs Vital signs: Temp Pulse Resp BP Pulse Ox 97.9 F 83 127/71 H 99 04/16/17 00:57 04/16/17 00:57 04/16/17 00:57 04/16/17 00:57 Discharge - Discharge Clinical Impression: Cornea abrasion Qualifiers: Encounter type: initial encounter Laterality: left Qualified Code(s): S05.02XA - Injury of conjunctiva and corneal abrasion without foreign body, left eye, initial encounter Condition: Stable Disposition: HOME, SELF-CARE Instructions: Corneal Abrasion ([facility]), Eyedrop Use ([facility]) Additional Instructions: Return immediately for any new or worsening symptoms Followup with your primary care provider, call tomorrow to make a followup appointment Follow-up with your communications engineer on Tuesday for recheck. Do not wear contact lenses until cleared to do so by your communications engineer. You should not sleep in your contact lenses Instill Besivance eyedrops, 1 drop to left eye 3 times a day for 7 days. Prescriptions: Besifloxacin HCl [Besivance 0.6% Oph Susp 5 ml] 1 drop OP TID #1 bottle Forms: Return to Work Referrals: [facility] [Provider Group] - Follow up as needed OFFICE [facility] [Provider Group] - 04/18/17
[2017-04-16] MEDS ORDERED: BESIFLOXACIN HCL 0.6% OPH SUSP 5 ML BOTTLE OS SCH (03:45)
[2017-04-16 04:13] VITALS: BP 116/70
== END 2017-04-16 04:13 | disposition home or self-care (01) ==
LOC: ER 00:04
DX: S05.02XA Injury of conjunctiva and corneal abrasion without foreign body, left eye, initial encounter (principal); X58.XXXA Exposure to other specified factors, initial encounter; J45.909 Unspecified asthma, uncomplicated; Z87.891 Personal history of nicotine dependence
CPT/HCPCS: 99283

== ENCOUNTER 2017-11-14 13:06 | Emergency (ER) | payer SELFPAY ==
[2017-11-14] MEDS ORDERED: NORMAL SALINE 1000 ML 1,000 ML IV ONE (15:12)
[2017-11-14] MEDS ORDERED: IPRATROPIUM/ALBUTEROL 0.5-2.5 MG/3 ML AMPUL NEB ONE (15:13)
--- NOTE | 2017-11-14 15:53 | RADIOLOGY REPORT (SQ) ---
EXAM DESCRIPTION: CHEST 2 VIEWS COMPLETED DATE/TIME: 11/14/2017 3:45 pm REASON FOR STUDY: sob COMPARISON: 02/07/2017 EXAM PARAMETERS: NUMBER OF VIEWS: two views TECHNIQUE: Digital Frontal and Lateral radiographic views of the chest acquired. RADIATION DOSE: NA LIMITATIONS: none FINDINGS: LUNGS AND PLEURA: No opacities, masses or pneumothorax. No pleural effusion. MEDIASTINUM AND HILAR STRUCTURES: No masses or contour abnormalities. HEART AND VASCULAR STRUCTURES: Heart normal size. No evidence for failure. BONES: No acute findings. HARDWARE: None in the chest. OTHER: No other significant finding. IMPRESSION: NO ACUTE RADIOGRAPHIC FINDING IN THE CHEST. TECHNICAL DOCUMENTATION: JOB ID: [id number] [employer]- All Rights Reserved Reading location - IP/workstation name: [email or web address]
--- NOTE | 2017-11-14 16:15 | ER Document Report ---
ED General - General Chief Complaint: Congestion Stated Complaint: CONGESTION,COUGH Time Seen by Provider: 11/14/17 15:07 TRAVEL OUTSIDE OF THE [place] IN LAST 30 DAYS: No - HPI Patient complains to provider of: Cough congestion chest pressure Notes: Patient symptoms ongoing for the last 4 days. Patient states cough congestion coughing up sputum. Patient denies any fevers or chills also states having diarrhea and feeling nauseous. No vomiting. Patient denies any recent antibiotics denies any sick contacts or travel. Resting comfortably upon my evaluation. Patient does states she smokes approximately 3-4 cigarettes a day pack lasting her for 3 days - Related Data Allergies/Adverse Reactions: deconsal Allergy (Uncoded 11/14/17 13:07) Past Medical History - Social History Smoking Status: Current Every Day Smoker Chew tobacco use (# tins/day): No Frequency of alcohol use: None Drug Abuse: None Family History: Reviewed & Not Pertinent Patient has suicidal ideation: No Patient has homicidal ideation: No Pulmonary Medical History: Reports: Hx Asthma Endocrine Medical History: Reports: Hx Hypothyroidism - no meds for 8 months Renal/ Medical History: Denies: Hx Peritoneal Dialysis Past Surgical History: Reports: Hx Section, Hx Gynecologic Surgery - tubal, Hx Orthopedic Surgery - right wrist, Hx Tubal Ligation. Denies: Hx Hysterectomy - Immunizations Immunizations up to date: Yes Hx Diphtheria, Pertussis, Tetanus Vaccination: Yes Review of Systems - Review of Systems Constitutional: No symptoms reported EENT: No symptoms reported Cardiovascular: Chest pain, Dyspnea Respiratory: Cough Gastrointestinal: No symptoms reported Genitourinary: No symptoms reported Female Genitourinary: No symptoms reported Musculoskeletal: No symptoms reported Skin: No symptoms reported Hematologic/Lymphatic: No symptoms reported Neurological/Psychological: No symptoms reported -: Yes All other systems reviewed and negative Physical Exam - Vital signs Vitals: Temp Pulse Resp BP Pulse Ox 99.2 F 84 18 122/75 100 11/14/17 13:45 11/14/17 13:45 11/14/17 13:45 11/14/17 13:45 11/14/17 13:45 Interpretation: Normal - General General appearance: Appears well, Alert - HEENT Head: Normocephalic, Atraumatic Eyes: Normal Pupils: PERRL - Respiratory Respiratory status: No respiratory distress Chest status: Nontender Breath sounds: Wheezing Chest palpation: Normal - Cardiovascular Rhythm: Regular Heart sounds: Normal auscultation Murmur: No - Abdominal Inspection: Normal Distension: No distension Bowel sounds: Normal Tenderness: Nontender Organomegaly: No organomegaly - Back Back: Normal, Nontender - Extremities General upper extremity: Normal inspection, Nontender, Normal color, Normal ROM , Normal temperature General lower extremity: Normal inspection, Nontender, Normal color, Normal ROM , Normal temperature, Normal weight bearing. No: Pj's sign - Neurological Neuro grossly intact: Yes Cognition: Normal Orientation: AAOx4 Juan José Coma Scale Eye Opening: Spontaneous Juan José Coma Scale Verbal: Oriented Juan José Coma Scale Motor: Obeys Commands Moriarty Coma Scale Total: 15 Speech: Normal Motor strength normal: LUE, RUE, LLE, RLE Sensory: Normal - Psychological Associated symptoms: Normal affect, Normal mood - Skin Skin Temperature: Warm Skin Moisture: Dry Skin Color: Normal Course - Re-evaluation Re-evalutation: 11/14/17 23:29 Wheezing. At the neurologic treatment. Most likely patient has underlying bronchitis because of the sputum length of symptoms we will start patient on Z- Josafat. Patient was educated about the need to stop smoking and educated patient to use the nicotine gum as adjunct to stop smoking. Patient agrees to treatment plan will be discharged home - Vital Signs Vital signs: Temp Pulse Resp BP Pulse Ox 98.9 F 81 20 120/84 100 11/14/17 18:20 11/14/17 18:20 11/14/17 18:20 11/14/17 18:20 11/14/17 18:20 - Laboratory Result Diagrams: 11/14/17 16:20 11/14/17 16:20 Laboratory results interpreted by me: 11/14/17 11/14/17 16:20 16:20 RDW 15.4 H Potassium 3.5 L Discharge - Discharge Clinical Impression: Bronchitis Condition: Good Disposition: HOME, SELF-CARE Instructions: Bronchitis ([facility]), Upper Respiratory Illness ([facility]) Additional Instructions: Your evaluation does not show any signs of pneumonia however do believe he has some underlying bronchitis. We have underlying bronchitis inflammation of the lungs or a URI. Would recommend treatment at this time with antibiotic azithromycin steroids and inhaler given to you here in ER. Please use the inhaler that we gave you 2 puffs every 4 hours for the next 5 days. Return to ER symptoms worsen. Prescriptions: Azithromycin [Zithromax] 250 mg PO DAILY #4 tablet Prednisone [Deltasone 20 mg Tablet] 2 tab PO DAILY 5 Days tablet Forms: Return to Work Referrals: KASSIE MEJIA DO [Primary Care Provider] - Follow up as needed
[2017-11-14 16:43] LABS: ABSOLUTE BASOPHILS # (AUTO) 0.1 10^3/uL (0.0-0.2); ABSOLUTE EOSINOPHILS # (AUTO) 0.2 10^3/uL (0.0-0.6); ABSOLUTE LYMPHOCYTES (AUTO) 2.4 10^3/uL (0.5-4.7); ABSOLUTE MONOCYTES (AUTO) 0.4 10^3/uL (0.1-1.4); ABSOLUTE NEUT (AUTO) 4.7 10^3/uL (1.7-8.2); BASOPHILS % (AUTO) 0.7 % (0-2); EOSINOPHILS % (AUTO) 2.8 % (0-6); HEMATOCRIT 38.7 % (36.0-47.0); LYMPHOCYTES % (AUTO) 30.7 % (13-45); MEAN CORPUSCULAR HEMOGLOBIN 29.2 pg (27.0-33.4); MEAN CORPUSCULAR HGB CONC 33.6 g/dL (32.0-36.0); MEAN CORPUSCULAR VOLUME 87 fl (80-97); MONOCYTES % (AUTO) 5.7 % (3-13); PLATELET COUNT 182 10^3/uL (150-450); RED BLOOD COUNT 4.44 10^6/uL (3.72-5.28); RED CELL DISTRIBUTION WIDTH 15.4 % (11.5-14.0); SEGMENTED NEUTROPHILS % (AUTO) 60.1 % (42-78); TOTAL CELLS COUNTED % (AUTO) 100 %; WHITE BLOOD COUNT 7.9 10^3/uL (4.0-10.5)
[2017-11-14 17:04] LABS: ALANINE AMINOTRANSFERASE 13 U/L (9-52); ALBUMIN 4.3 g/dL (3.5-5.0); ALKALINE PHOSPHATASE 55 U/L (38-126); ANION GAP 10 (5-19); ASPARTATE AMINO TRANSFERASE 29 U/L (14-36); BILIRUBIN,DIRECT 0.3 mg/dL (0.0-0.4); BILIRUBIN,TOTAL 0.3 mg/dL (0.2-1.3); BLOOD UREA NITROGEN 12 mg/dL (7-20); CALCIUM 9.4 mg/dL (8.4-10.2); CARBON DIOXIDE 29 mmol/L (22-30); CHLORIDE 103 mmol/L (98-107); GLUCOSE 95 mg/dL (75-110); LIPASE 68.4 U/L (23-300); POTASSIUM 3.5 mmol/L (3.6-5.0); SODIUM 141.6 mmol/L (137-145); TOTAL PROTEIN 8.2 g/dL (6.3-8.2)
[2017-11-14] MEDS ORDERED: ALBUTEROL SULFATE HFA (90 MCG/PUFF) 8 GM MDI (1 MDI/ER DISP) IH ONE (17:47)
[2017-11-14] MEDS ORDERED: AZITHROMYCIN 250 MG TABLET PO ONE (17:47)
[2017-11-14 18:22] VITALS: BP 120/84
--- NOTE | 2017-11-14 19:32 | EKG REPORT ---
SEVERITY:- NORMAL ECG - SINUS RHYTHM : Confirmed by: Kirt Conley MD 14-Nov-2017 19:32:15
== END 2017-11-14 18:21 | disposition home or self-care (01) ==
LOC: ER 13:06
DX: J40 Bronchitis, not specified as acute or chronic (principal); R07.9 Chest pain, unspecified; F17.210 Nicotine dependence, cigarettes, uncomplicated; E03.9 Hypothyroidism, unspecified; Z98.51 Tubal ligation status
CPT/HCPCS: 93005; 94640; 99284; 96360; 96361; 36415; 83690; 84703; 85025; 80053; 71046; 93010; J7030; J3490; J7620

== ENCOUNTER 2017-11-23 07:11 | Emergency (ER) | payer MEDICAID ==
--- NOTE | 2017-11-23 07:42 | ER Document Report ---
HPI - HPI Patient complains to provider of: cough Onset: Other - several weeks Pain Level: 3 Context: 41 yo smoke with cough for several weeks. the azithromycin did not help. still coughing. no sob or fever. Associated Symptoms: None Exacerbated by: Denies Relieved by: Denies - ROS ROS below otherwise negative: Yes Systems Reviewed and Negative: Yes All other systems reviewed and negative - REPRODUCTIVE LMP: na Reproductive: DENIES: : Past Medical History - General Information source: Patient - Social History Smoking Status: Current Every Day Smoker Lives with: Family Family History: Reviewed & Not Pertinent Pulmonary Medical History: Reports: Hx Asthma, Hx Bronchitis Endocrine Medical History: Reports: Hx Hypothyroidism - no meds for 8 months Renal/ Medical History: Denies: Hx Peritoneal Dialysis Past Surgical History: Reports: Hx Section, Hx Gynecologic Surgery - tubal, Hx Orthopedic Surgery - right wrist, Hx Tubal Ligation. Denies: Hx Hysterectomy - Immunizations Immunizations up to date: Yes Hx Diphtheria, Pertussis, Tetanus Vaccination: Yes Vertical Provider Document - CONSTITUTIONAL Agree With Documented VS: Yes Exam Limitations: No Limitations General Appearance: No Apparent Distress - INFECTION CONTROL TRAVEL OUTSIDE OF THE [place] IN LAST 30 DAYS: No - HEENT HEENT: Pharyngeal Erythema - mild - NECK Neck: Supple. negative: Lymphadenopathy-Left, Lymphadenopathy-Right - RESPIRATORY Respiratory: Wheezing - expiratory coarse bilateral - CARDIOVASCULAR Cardiovascular: Regular Rate, Regular Rhythm - NEURO Level of Consciousness: Awake - DERM Integumentary: No Rash Course - Re-evaluation Re-evalutation: 11/23/17 09:03 Chest x-ray is negative per rad Discharge - Discharge Clinical Impression: Bronchitis, Tobacco abuse Condition: Good Disposition: HOME, SELF-CARE Instructions: Bronchitis ([facility]), Inhaled Bronchodilators ([facility]), Stop Smoking ( [facility]) Additional Instructions: Stop smoking Wear a mask at work You can use the inhaler every 3 hours 2 puffs for the cough and wheeze Return if you develop any shortness of breath chest pain fever chills worsening symptoms Copy of negative x-ray given to you Prescriptions: Albuterol Sulfate [Proair HFA Inhalation Aerosol 8.5 gm MDI] 2 puff IH Q3HP PRN #1 [email or web address] PRN Reason: Forms: Return to Work Referrals: KASSIE MEJIA DO [Primary Care Provider] - Follow up as needed
[2017-11-23 07:43] VITALS: BP 111/72
[2017-11-23] MEDS ORDERED: IPRATROPIUM/ALBUTEROL 0.5-2.5 MG/3 ML AMPUL NEB ONE (07:48)
--- NOTE | 2017-11-23 08:22 | RADIOLOGY REPORT (SQ) ---
EXAM DESCRIPTION: CHEST 2 VIEWS COMPLETED DATE/TIME: 11/23/2017 8:02 am REASON FOR STUDY: cough for 2 weeks COMPARISON: 11/14/2017 EXAM PARAMETERS: NUMBER OF VIEWS: two views TECHNIQUE: Digital Frontal and Lateral radiographic views of the chest acquired. RADIATION DOSE: NA LIMITATIONS: none FINDINGS: LUNGS AND PLEURA: No opacities, masses or pneumothorax. No pleural effusion. MEDIASTINUM AND HILAR STRUCTURES: No masses or contour abnormalities. HEART AND VASCULAR STRUCTURES: Heart normal size. No evidence for failure. BONES: No acute findings. HARDWARE: None in the chest. OTHER: No other significant finding. IMPRESSION: NO ACUTE RADIOGRAPHIC FINDING IN THE CHEST. TECHNICAL DOCUMENTATION: JOB ID: [id number] [employer]- All Rights Reserved Reading location - IP/workstation name: [email or web address]
== END 2017-11-23 09:17 | disposition home or self-care (01) ==
LOC: ER 07:11
DX: J40 Bronchitis, not specified as acute or chronic (principal); F17.200 Nicotine dependence, unspecified, uncomplicated
CPT/HCPCS: 94640; 99283; 71046; J7620

== ENCOUNTER 2018-04-05 12:04 | Emergency (ER) | payer MEDICAID ==
[2018-04-05 12:27] VITALS: BP 113/69
--- NOTE | 2018-04-05 13:18 | ER Document Report ---
ED General - General Chief Complaint: Back Pain Stated Complaint: BACK PAIN Time Seen by Provider: 04/05/18 13:00 Notes: 42-year-old female patient emergency department chief complaint of not feeling well. Patient states that she knows that she has hypothyroidism but has not been able to take her medications because she has not had insurance and has not been able to get a refill. Has had increased weakness and generally feeling ill. Having some body aches and pains. Tired all the time. Weight gain. TRAVEL OUTSIDE OF THE [place] IN LAST 30 DAYS: No - HPI Onset: Last week Onset/Duration: Gradual, Constant Quality of pain: Achy - Related Data Allergies/Adverse Reactions: deconsal Allergy (Uncoded 11/14/17 13:07) Past Medical History - General Information source: Patient - Social History Smoking Status: Current Every Day Smoker Cigarette use (# per day): Yes Frequency of alcohol use: Occasional Drug Abuse: None Lives with: Family Family History: Reviewed & Not Pertinent Patient has suicidal ideation: No Patient has homicidal ideation: No Pulmonary Medical History: Reports: Hx Asthma, Hx Bronchitis Endocrine Medical History: Reports: Hx Hypothyroidism - no meds for 8 months Renal/ Medical History: Denies: Hx Peritoneal Dialysis Past Surgical History: Reports: Hx Section, Hx Gynecologic Surgery - tubal, Hx Orthopedic Surgery - right wrist, Hx Tubal Ligation. Denies: Hx Hys terectomy - Immunizations Immunizations up to date: Yes Hx Diphtheria, Pertussis, Tetanus Vaccination: Yes Review of Systems - Review of Systems Constitutional: Malaise, Weakness. denies: Fever EENT: Other - Right eye seems bigger than the left. denies: Double vision, Difficulty swallowing, Mouth pain Cardiovascular: denies: Chest pain, Palpitations, Heart racing, Orthopnea Respiratory: Short of breath. denies: Cough, Hurts to breathe Gastrointestinal: Abdominal pain. denies: Diarrhea, Nausea, Vomiting Genitourinary: denies: Burning, Dysuria, Discharge Musculoskeletal: Back pain. denies: Joint pain, Joint swelling, Muscle pain Skin: denies: Dryness, Lesions, Lumps, Rash Hematologic/Lymphatic: denies: Anemia, Blood clots, Easy bleeding, Easy bruising Neurological/Psychological: Weakness. denies: Confusion, Paralysis, Seizure, Nu mbness Physical Exam - Vital signs Vitals: Temp Pulse Resp BP Pulse Ox 98.2 F 78 18 113/69 100 04/05/18 12:25 04/05/18 12:25 04/05/18 12:25 04/05/18 12:25 04/05/18 12:25 Interpretation: Normal - General General appearance: Appears well, Alert - HEENT Head: Normocephalic, Atraumatic Eyes: Other - Left eye feels normal however right eye has slight prominence with moderate amount of exophthalmos Pupils: PERRL External canal: Normal Tympanic membrane: Normal Sinus: Normal Nasal: Normal Pharynx: Normal Neck: Normal - Respiratory Respiratory status: No respiratory distress Chest status: Nontender Breath sounds: Normal Chest palpation: Normal - Cardiovascular Rhythm: Regular Heart sounds: Normal auscultation Murmur: No - Abdominal Inspection: Normal Distension: No distension Bowel sounds: Normal Tenderness: Nontender Organomegaly: No organomegaly - Back Back: Normal, Nontender - Extremities General upper extremity: Normal inspection, Nontender, Normal color, Normal ROM, Normal temperature General lower extremity: Normal inspection, Nontender, Normal color, Normal ROM, Normal temperature, Normal weight bearing. No: Pj's sign - Neurological Neuro grossly intact: Yes Cognition: Normal Orientation: AAOx4 [place] Coma Scale Eye Opening: Spontaneous [place] Coma Scale Verbal: Oriented [place] Coma Scale Motor: Obeys Commands [place] Coma Scale Total: 15 Speech: Normal Motor strength normal: LUE, RUE, LLE, RLE Sensory: Normal - Psychological Associated symptoms: Normal affect, Normal mood - Skin Skin Temperature: Warm Skin Moisture: Dry Skin Color: Normal Course - Re-evaluation Re-evalutation: 04/05/18 16:12 Patient is well-appearing. Labs are relatively unremarkable with exception of extremely elevated TSH which is no surprise as patient has not been taking her Synthroid. We will start her back on her thyroid medication. Advised her to follow-up as soon as possible with her primary care doctor. Will provide follow-up primary care doctor information as well. 04/05/18 16:13 Laboratory 04/05/18 04/05/18 04/05/18 14:15 14:15 14:15 WBC 6.4 RBC 4.66 Hgb 13.8 Hct 41.4 MCV 89 MCH 29.6 MCHC 33.3 RDW 14.8 H Plt Count 214 Seg Neutrophils % 58.2 Lymphocytes % 34.0 Monocytes % 5.6 Eosinophils % 1.5 Basophils % 0.7 Absolute Neutrophils 3.7 Absolute Lymphocytes 2.2 Absolute Monocytes 0.4 Absolute Eosinophils 0.1 Absolute Basophils 0.0 Sodium 140.7 Potassium 4.1 Chloride 104 Carbon Dioxide 28 Anion Gap 9 BUN 8 Creatinine 0.69 Est GFR ( Amer) > 60 Est GFR (Non-Af Amer) > 60 Glucose 93 Calcium 9.5 Total Bilirubin 0.2 Direct Bilirubin 0.1 Neonat Total Bilirubin Not Reportable Neonat Direct Bilirubin Not Reportable Neonat Indirect Bili Not Reportable AST 27 ALT 32 Alkaline Phosphatase 60 Creatine Kinase 58 CK-MB (CK-2) 0.39 NT-Pro-B Natriuret Pep 24 Total Protein 7.6 Albumin 4.5 TSH Free T4 Free T3 pg/mL Urine Color Urine Appearance Urine pH Ur Specific [place] Urine Protein Urine Glucose (UA) Urine Ketones Urine Blood Urine Nitrite Urine Bilirubin Urine Urobilinogen Ur Leukocyte Esterase Urine WBC (Auto) Urine RBC (Auto) Squamous Epi Cells Auto Urine Mucus (Auto) Urine Ascorbic Acid 04/05/18 04/05/18 14:15 14:15 WBC RBC Hgb Hct MCV MCH MCHC RDW Plt Count Seg Neutrophils % Lymphocytes % Monocytes % Eosinophils % Basophils % Absolute Neutrophils Absolute Lymphocytes Absolute Monocytes Absolute Eosinophils Absolute Basophils Sodium Potassium Chloride Carbon Dioxide Anion Gap BUN Creatinine Est GFR ( Amer) Est GFR (Non-Af Amer) Glucose Calcium Total Bilirubin Direct Bilirubin Neonat Total Bilirubin Neonat Direct Bilirubin Neonat Indirect Bili AST ALT Alkaline Phosphatase Creatine Kinase CK-MB (CK-2) NT-Pro-B Natriuret Pep Total Protein Albumin TSH 22.00 H Free T4 0.61 L Free T3 pg/mL 2.47 L Urine Color STRAW Urine Appearance CLEAR Urine pH 6.0 Ur Specific [place] 1.006 Urine Protein NEGATIVE Urine Glucose (UA) NEGATIVE Urine Ketones NEGATIVE Urine Blood NEGATIVE Urine Nitrite NEGATIVE Urine Bilirubin NEGATIVE Urine Urobilinogen NEGATIVE Ur Leukocyte Esterase TRACE H Urine WBC (Auto) 5 Urine RBC (Auto) 1 Squamous Epi Cells Auto <1 Urine Mucus (Auto) RARE Urine Ascorbic Acid NEGATIVE - Vital Signs Vital signs: Temp Pulse Resp BP Pulse Ox 98.2 F 78 18 113/69 100 04/05/18 12:25 04/05/18 12:25 04/05/18 12:25 04/05/18 12:25 04/05/18 12:25 - Laboratory Result Diagrams: 04/05/18 14:15 04/05/18 14:15 Laboratory results interpreted by me: 04/05/18 04/05/18 04/05/18 14:15 14:15 14:15 RDW 14.8 H TSH 22.00 H Free T4 0.61 L Free T3 pg/mL 2.47 L Ur Leukocyte Esterase TRACE H - EKG Interpretation by Me EKG shows normal: Sinus rhythm, Leiter, Intervals, QRS Complexes, ST-T Waves - She needs some Synthroid there is something Discharge - Discharge Clinical Impression: Hypothyroidism Qualifiers: Hypothyroidism type: unspecified Qualified Code(s): E03.9 - Hypothyroidism, unspecified Condition: Good Disposition: HOME, SELF-CARE Instructions: Hypothyroidism ([facility]) Additional Instructions: Begin taking the medication as prescribed. In the event that you begin to have any worsening symptoms please return immediately please make appointment to follow-up with your primary care doctor. Prescriptions: Levothyroxine Sodium [Synthroid 0.088 mg Tablet] 0.088 mg PO DAILY 30 Days #30 tablet Forms: Return to Work Referrals: KASSIE MEJIA DO [Primary Care Provider] - Follow up in 3-5 days
--- NOTE | 2018-04-05 14:23 | RADIOLOGY REPORT (SQ) ---
EXAM DESCRIPTION: CHEST 2 VIEWS COMPLETED DATE/TIME: 04/05/2018 2:09 pm REASON FOR STUDY: sob COMPARISON: 11/23/2017 EXAM PARAMETERS: NUMBER OF VIEWS: two views TECHNIQUE: Digital Frontal and Lateral radiographic views of the chest acquired. RADIATION DOSE: NA LIMITATIONS: none FINDINGS: LUNGS AND PLEURA: No opacities, masses or pneumothorax. No pleural effusion. MEDIASTINUM AND HILAR STRUCTURES: No masses or contour abnormalities. HEART AND VASCULAR STRUCTURES: Heart normal size. No evidence for failure. BONES: No acute findings. HARDWARE: None in the chest. OTHER: No other significant finding. IMPRESSION: NO ACUTE RADIOGRAPHIC FINDING IN THE CHEST. TECHNICAL DOCUMENTATION: JOB ID: [id number] [employer]- All Rights Reserved Reading location - IP/workstation name: [email or web address]
[2018-04-05 15:05] LABS: ABSOLUTE EOSINOPHILS # (AUTO) 0.1 10^3/uL (0.0-0.6); ABSOLUTE LYMPHOCYTES (AUTO) 2.2 10^3/uL (0.5-4.7); ABSOLUTE MONOCYTES (AUTO) 0.4 10^3/uL (0.1-1.4); ABSOLUTE NEUT (AUTO) 3.7 10^3/uL (1.7-8.2); BASOPHILS % (AUTO) 0.7 % (0-2); EOSINOPHILS % (AUTO) 1.5 % (0-6); HEMATOCRIT 41.4 % (36.0-47.0); HEMOGLOBIN 13.8 g/dL (12.0-15.5); MEAN CORPUSCULAR HEMOGLOBIN 29.6 pg (27.0-33.4); MEAN CORPUSCULAR HGB CONC 33.3 g/dL (32.0-36.0); MEAN CORPUSCULAR VOLUME 89 fl (80-97); MONOCYTES % (AUTO) 5.6 % (3-13); PLATELET COUNT 214 10^3/uL (150-450); RED BLOOD COUNT 4.66 10^6/uL (3.72-5.28); RED CELL DISTRIBUTION WIDTH 14.8 % (11.5-14.0); SEGMENTED NEUTROPHILS % (AUTO) 58.2 % (42-78); TOTAL CELLS COUNTED % (AUTO) 100 %; WHITE BLOOD COUNT 6.4 10^3/uL (4.0-10.5)
[2018-04-05 15:07] LABS: APPEARANCE,URINE CLEAR; BILIRUBIN,URINE NEGATIVE (NEGATIVE); COLOR,URINE STRAW; GLUCOSE, URINE NEGATIVE (NEGATIVE); KETONES,URINE NEGATIVE (NEGATIVE); LEUKOCYTE ESTERASE,URINE TRACE (NEGATIVE); NITRITE,URINE NEGATIVE (NEGATIVE); PROTEIN,URINE NEGATIVE (NEGATIVE); URINE SPECIFIC GRAVITY 1.006; UROBILINOGEN,URINE NEGATIVE mg/dL (<2.0)
[2018-04-05 15:27] LABS: ALANINE AMINOTRANSFERASE 32 U/L (9-52); ALBUMIN 4.5 g/dL (3.5-5.0); ALKALINE PHOSPHATASE 60 U/L (38-126); ANION GAP 9 (5-19); ASPARTATE AMINO TRANSFERASE 27 U/L (14-36); BILIRUBIN,DIRECT 0.1 mg/dL (0.0-0.4); BILIRUBIN,TOTAL 0.2 mg/dL (0.2-1.3); BLOOD UREA NITROGEN 8 mg/dL (7-20); CALCIUM 9.5 mg/dL (8.4-10.2); CARBON DIOXIDE 28 mmol/L (22-30); CHLORIDE 104 mmol/L (98-107); CREATINE KINASE 58 U/L (30-135); GLUCOSE 93 mg/dL (75-110); POTASSIUM 4.1 mmol/L (3.6-5.0); SODIUM 140.7 mmol/L (137-145); TOTAL PROTEIN 7.6 g/dL (6.3-8.2)
[2018-04-05 15:34] LABS: CREATINE KINASE MB 0.39 ng/mL (<4.55)
[2018-04-05 15:43] LABS: FREE T3 2.47 pg/mL (2.77-5.27); FREE T4 (FREE THYROXINE) 0.61 ng/dL (0.78-2.19)
[2018-04-05] MEDS ORDERED: LEVOTHYROXINE SODIUM 0.088 MG TABLET PO ONE (16:11)
--- NOTE | 2018-04-05 18:00 | EKG REPORT ---
SEVERITY:- NORMAL ECG - SINUS RHYTHM : Confirmed by: Kyaw Rodrigues 05-Apr-2018 18:00:00
== END 2018-04-05 16:45 | disposition home or self-care (01) ==
LOC: ER 12:04
DX: E03.9 Hypothyroidism, unspecified (principal); M54.9 Dorsalgia, unspecified; F17.210 Nicotine dependence, cigarettes, uncomplicated; Z98.51 Tubal ligation status
CPT/HCPCS: 36415; 71046; 80053; 81001; 82550; 82553; 83880; 84439; 84443; 84481; 85025; 87086; 93005; 93010; 99284

== ENCOUNTER → 2018-08-26 | Outpatient (CLI) | payer MEDICAID ==
[2018-08-26 11:41] LABS: BACTERIA (WET MOUNT) 4+ BACTERIA SEEN; EPITHELIALS (WET MOUNT) 3+ EPITHELIALS SEEN; RBCS (WET MOUNT) RARE RBCS SEEN; T.VAGINALIS (WET MOUNT) TRICHOMONAS SEEN; WBCS (WET MOUNT) FEW WBCS SEEN; YEAST (WET MOUNT) NO YEAST SEEN
[2018-08-26 13:06] LABS: CHLAM PCR NOT DETECTED (NOT DETECT); GON PCR NOT DETECTED (NOT DETECT)
== END ==
LOC: LAB 11:08
PROVIDERS: ATTEND Nurse Practitioner Family
DX: R30.0 Dysuria (principal); Z20.2 Contact with and (suspected) exposure to infections with a predominantly sexual mode of transmission
CPT/HCPCS: 87086; 87210; 87491; 87591